=== PATIENT | female | born 1995 | race Caucasian/White ===

== ENCOUNTER 2017-11-15 20:11 | Inpatient (IN) | payer OTHER ==
[~2017-11-15] VITALS: Ht 167.6 cm; Wt 68.6 kg
[2017-11-15 20:33] VITALS: BP 136/74; PULSE 89; RESP 18; TEMP 100.1; O2SAT 97
[2017-11-15 21:14] LABS: AUTOMATED NEUTROPHIL # 5.7 TH/MM3 (1.8-7.7); BASOPHIL % 0.4 % (0.0-2.0); EOSINOPHIL % 0.1 % (0.0-4.0); HEMATOCRIT 37.8 % (35.0-46.0); HEMOGLOBIN 12.7 GM/DL (11.6-15.3); LYMPH % 15.4 % (9.0-44.0); LYMPHOCYTE # 1.1 TH/MM3 (1.0-4.8); MEAN CELL VOLUME 87.2 FL (80.0-100.0); MEAN CORPUSCULAR HEMOGLOBIN 29.3 PG (27.0-34.0); MEAN CORPUSCULAR HGB CONC 33.6 % (32.0-36.0); MEAN PLATELET VOLUME 9.8 FL (7.0-11.0); MONO % 7.4 % (0.0-8.0); MONOCYTE # 0.5 TH/MM3 (0-0.9); NEUT % 76.7 % (16.0-70.0); PLATELET COUNT 219 TH/MM3 (150-450); RED BLOOD COUNT 4.34 MIL/MM3 (4.00-5.30); WHITE BLOOD COUNT 7.4 TH/MM3 (4.0-11.0)
[2017-11-15 21:31] LABS: AST (GOT) 24 U/L (15-37); BICARBONATE 23.9 MEQ/L (21.0-32.0); BLOOD UREA NITROGEN 9 MG/DL (7-18); CHLORIDE 104 MEQ/L (98-107); GLOMERULAR FILTRATION RATE 91 ML/MIN (>89); GLUCOSE,RANDOM 104 MG/DL (74-106); SODIUM (NA) 138 MEQ/L (136-145)
[2017-11-15 21:42] LABS: ALKALINE PHOSPHATASE 56 U/L (45-117); ALT (GPT) 25 U/L (10-53); TOTAL BILIRUBIN ADULT 0.2 MG/DL (0.2-1.0); TOTAL PROTEIN 8.1 GM/DL (6.4-8.2)
--- NOTE | 2017-11-15 22:34 | PD ---
HPI Chief Complaint: Psychiatric Symptoms Time Seen by Provider: 21:51 Travel History International Travel<30 days: No Contact w/Intl Traveler<30days: No Traveled to known affect area: No History of Present Illness HPI 21-year-old female that presents to the ED for evaluation of Love act. Patient was Love acted by police after apparently she got in argument with her boyfriend and was in a closed garage with car turned on for about 10 minutes. Car was turned off and police where made involved. Per patient she has never been Lvoe acted before. She does suffer from anxiety and takes medications for it but she will not really tell me what it is. Per patient she feels very anxious because she is in the hospital. She denies any urinary or bowel movement issues. No chest pain or shortness of breath. No other medical issues. Denies suicidal or homicidal ideation. Denies any other medical issues at this time. No drugs or alcohol. Symptoms appear to have worsened today secondary to argument with significant other. [facility] Social History Alcohol Use: No Tobacco Use: No Substance Use: No Review of Systems Except as stated in HPI: all other systems reviewed are Neg Physical Exam Narrative GENERAL: SKIN: Warm and dry. HEAD: Atraumatic. Normocephalic. EYES: Pupils equal and round. No scleral icterus. No injection or drainage. ENT: No nasal bleeding or discharge. Mucous membranes pink and moist. Tongue is midline. No uvula deviation. NECK: Trachea midline. No JVD. CARDIOVASCULAR: Regular rate and rhythm. No murmurs, S3, S4. RESPIRATORY: No accessory muscle use. Clear to auscultation. Breath sounds equal bilaterally. GASTROINTESTINAL: Abdomen soft, non-tender, nondistended. Hepatic and splenic margins not palpable. MUSCULOSKELETAL: Extremities without clubbing, cyanosis, or edema. No obvious deformities. Full range of motion of the upper and lower extremities bilaterally. 2+ pulses bilaterally. NEUROLOGICAL: Awake and alert. No obvious cranial nerve deficits. Motor grossly within normal limits. Five out of 5 muscle strength in the arms and legs. Normal speech. PSYCHIATRIC: Anxious mood and affect; insight and judgment normal. Data Data Last Documented VS Vital Signs Date Time Temp Pulse Resp B/P (MAP) Pulse Ox O2 Delivery O2 Flow Rate FiO2 11/15/17 20:33 100.1 89 18 136/74 (94) 97 Room Air Orders Orders Complete Blood Count With Diff (11/15/17 20:13) Comprehensive Metabolic Panel (11/15/17 20:13) Thyroid Stimulating Hormone (11/15/17 20:13) Psych Screen (11/15/17 20:13) Drug Screen, Random Urine (11/15/17 20:13) Alcohol (Ethanol) (11/15/17 20:13) Labs Laboratory Tests Test 11/15/17 20:40 White Blood Count 7.4 TH/MM3 Red Blood Count 4.34 MIL/MM3 Hemoglobin 12.7 GM/DL Hematocrit 37.8 % Mean Corpuscular Volume 87.2 FL Mean Corpuscular Hemoglobin 29.3 PG Mean Corpuscular Hemoglobin Concent 33.6 % Red Cell Distribution Width 13.0 % Platelet Count 219 TH/MM3 Mean Platelet Volume 9.8 FL Neutrophils (%) (Auto) 76.7 % Lymphocytes (%) (Auto) 15.4 % Monocytes (%) (Auto) 7.4 % Eosinophils (%) (Auto) 0.1 % Basophils (%) (Auto) 0.4 % Neutrophils # (Auto) 5.7 TH/MM3 Lymphocytes # (Auto) 1.1 TH/MM3 Monocytes # (Auto) 0.5 TH/MM3 Eosinophils # (Auto) 0.0 TH/MM3 Basophils # (Auto) 0.0 TH/MM3 CBC Comment DIFF FINAL Differential Comment Blood Urea Nitrogen 9 MG/DL Creatinine 0.80 MG/DL Random Glucose 104 MG/DL Total Protein 8.1 GM/DL Albumin 4.0 GM/DL Calcium Level 9.0 MG/DL Alkaline Phosphatase 56 U/L Aspartate Amino Transf (AST/SGOT) 24 U/L Alanine Aminotransferase (ALT/SGPT) 25 U/L Total Bilirubin 0.2 MG/DL Sodium Level 138 MEQ/L Potassium Level 3.6 MEQ/L Chloride Level 104 MEQ/L Carbon Dioxide Level 23.9 MEQ/L Anion Gap 10 MEQ/L Estimat Glomerular Filtration Rate 91 ML/MIN Thyroid Stimulating Hormone 3rd Gen 2.510 uIU/ML Urine Opiates Screen NEG Urine Barbiturates Screen NEG Urine Amphetamines Screen NEG Urine Benzodiazepines Screen NEG Urine Cocaine Screen NEG Urine Cannabinoids Screen NEG Ethyl Alcohol Level LESS THAN 3 MG/DL MDM Medical Decision Making Medical Screen Exam Complete: Yes Emergency Medical Condition: Yes Medical Record Reviewed: Yes Interpretation(s) CBC & BMP Diagram 11/15/17 20:40 Total Protein 8.1, Albumin 4.0, Calcium Level 9.0, Alkaline Phosphatase 56, Aspartate Amino Transf (AST/SGOT) 24, Alanine Aminotransferase (ALT/SGPT) 25, Total Bilirubin 0.2 Differential Diagnosis Depression versus suicidal ideation versus anxiety versus adjustment disorder versus mood disorder versus bipolar disorder versus schizophrenia versus paranoid disorder versus psychosis versus substance abuse versus alcohol abuse versus alcohol induced psychosis versus homicidality addition versus cutting versus personality disorder Narrative Course 21-year-old female that presents to the ED for evaluation of psych. Patient was properly examined and was found to have signs and symptoms consistent with psychiatric illness been a significant medical distress. Labs were drawn. Patient was medically clear. Okay to be seen by psych. Mental health screening was discussed with the patient. Diagnosis Primary Impression: Adjustment disorder Qualified Codes: F43.20 - Adjustment disorder, unspecified Arun Fang Nov 15, 2017 22:33
[2017-11-16 02:16] VITALS: BP 107/57; PULSE 73; RESP 18; TEMP 98.2; O2SAT 99
[2017-11-16 05:44] VITALS: BP 101/57; PULSE 82; RESP 18; TEMP 97.6; O2SAT 100
[2017-11-16] MEDS ORDERED: LORazepam 2 MG/ML VIAL IM PRN ×2 (10:45)
[2017-11-16] MEDS ORDERED: LORazepam 1 MG TAB PO PRN (10:45)
[2017-11-16] MEDS ORDERED: ACETAMINOPHEN 325 MG TAB PO PRN (10:45)
[2017-11-16] MEDS ORDERED: MAGNESIUM HYDROXIDE SUSP 30 ML CUP PO PRN (10:45)
[2017-11-16] MEDS ORDERED: ALUMINUM/MAGNESIUM/SIMETH 30 ML CUP PO PRN (10:45)
[2017-11-16] MEDS ORDERED: LORazepam 0.5 MG TAB PO PRN (10:45)
[2017-11-16] MEDS: NICOTINE 21 MG/24 HR PATCH T-DERMAL SCH (10:45)
[2017-11-16 12:25] VITALS: BP 145/84; PULSE 89; RESP 20; TEMP 98.7; O2SAT 98
--- NOTE | 2017-11-16 13:52 | HHI.HP ---
Provisional Diagnosis Admission Date Nov 16, 2017 at 10:45 [place] I. Adjustment disorder with depressed mood vs major depressive disorder, recurrent , severe, without psychosis, history of anxiety [place] II. Deferred [place] III. No significant medical history Certification of Person's Competence To Provide Express and Informed Consent I have personally examined Meredith Monique , a person being served at [facility] on, Nov 16, 2017 13:37. Express and informed consent means consent voluntarily given in writing, by a competent person, after sufficient explanation and disclosure of the subject matter involved to enable the person to make a knowing and willful decision without any element of force, fraud, deceit, duress, or other form of constraint or coercion. This person is 18 years of age or older, is not now known to be incompetent to consent to treatment with a guardian advocate, and does not have a health care surrogate or proxy currently making medical treatment decisions. I have found this person to be one of the following: [] Competent to provide express and informed consent, as defined above, for voluntary admission to this facility and is competent to provide express and informed consent for treatment. He/she has the consistent capacity to make well reasoned, willful, and knowing decisions concerning his or her medical or mental health treatment. The person fully and consistently understands the purpose of the admission for examination/placement and is fully capable of personally exercising all rights assured [place] Incompetent to provide express and informed consent to voluntary admission, and this is incompetent to provide express and informed consent to treatment. The person must be transferred to involuntary status and a petition for a guardian advocate filed with the Circuit Court. [x] Refusing to provide express and informed consent to voluntary admission but is competent to provide express and informed consent for treatment. The person must be discharged or transferred to involuntary status. Form shall be completed within 24 hours of a person's arrival at the receiving facility and filed in the clinical record of each person: 1. Admitted on a voluntary basis 2. Permitted to provide express and informed consent to his/her own treatment 3. Allowed to transfer from involuntary to voluntary status 4. Prior to permitting a person to consent to his or her own treatment after having been previously found incompetent to consent to treatment. 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 Cornejo, no previous psychiatric hospitalizations, no previous suicide attempts, she does have a grandmother with schizophrenia and a brother who committed suicide at the age of 1515 years old, no significant medical history , that presents to the ED for evaluation of Love act. Patient was Love acted by police after apparently she got in argument with her boyfriend and was in a closed garage with car turned on for about 10 minutes. Car was turned off and police where made involved. Per patient she has never been Love acted before. On psychiatric evaluation today the patient is calm, but very distressed and labile. Patient reports that she got very far in trying to commit suicide, she got inside her car and her plan was to run the car with the windows open inside the garage "note with intentions to kill myself, but to demonstrate drastically to my boyfriend how much I love him". During the evaluation the patient is tearful, she looks objectively depressed, reports that she has been depressed lately and she was recently started in Prozac by a psychiatrist. The patient refuses to talk about the reason of her depression, states "if I tell you that you are going to leave me here". Patient also refuses to give me the telephone number her family for collateral information at this moment she denies suicidal enemas ideation, she denies visual and auditory hallucinations. The patient reports that she has a brother who committed suicide at the age of 15 year-old and she would not do the same. Patient is fully oriented 3. No attention deficit, no fluctuation of consciousness present. She is logical, coherent and relevant, no paranoia, disorganized behavior or speech or delusions present. The patient denies the use of alcohol and illegal drugs. Review of Systems Constitutional: DENIES: Diaphoretic episodes, Fatigue, Fever, Weight gain, Weight loss, Chills, Dizziness, Change in appetite, Night Sweats Endocrine: DENIES: Abnorml menstrual pattern, Heat/cold intolerance, Polydipsia , Polyuria, Polyphagia Eyes: DENIES: Blurred vision, Diplopia, Eye inflammation, Eye pain, Vision loss , Photosensitivity, Double Vision Ears, nose, mouth, throat: DENIES: Tinnitus, Hearing loss, Vertigo, Nasal discharge, Oral lesions, Throat pain, Hoarseness, Ear Pain, Running Nose, Epistaxis, Sinus Pain, Toothache, Odynophagia Respiratory: DENIES: Apneas, Cough, Snoring, Wheezing, Hemoptysis, Sputum production, Shortness of breath Cardiovascular: DENIES: Chest pain, Palpitations, Syncope, Dyspnea on Exertion , PND, Lower Extremity Edema, Orthopnea, Claudication Gastrointestinal: DENIES: Abdominal pain, Black stools, Bloody stools, Constipation, Diarrhea, Nausea, Vomiting, Difficulty Swallowing, Anorexia Genitourinary: DENIES: Abnormal vaginal bleeding, Dysmenorrhea, Dyspareunia, Sexual dysfunction, Urinary frequency, Urinary incontinence, Urgency, Hematuria , Dysuria, Nocturia, Vaginal discharge Musculoskeletal: DENIES: Joint pain, Muscle aches, Stiffness, Joint Swelling, Back pain, Neck pain Integumentary: DENIES: Abnormal pigmentation, Pruritus, Rash, Nail changes, Breast masses, Breast skin changes, Nipple discharge Hematologic/lymphatic: DENIES: Bruising, Lymphadenopathy Immunologic/allergic: DENIES: Eczema, Urticaria Neurologic: DENIES: Abnormal gait, Headache, Localized weakness, Paresthesias, Seizures, Speech Problems, Tremor, Poor Balance Psychiatric: DENIES: Anxiety, Confusion, Mood changes, Depression, Hallucinations, Agitation, Suicidal Ideation, Homicidal Ideation, Delusions Past Psych History Violence risk - self (6 mos) Increased Substance Abuse History Drugs/Alcohol past 12 months Patient denies the use of alcohol and illegal drug Past Family Social History Coded Allergies: No Known Allergies (Unverified , 11/15/17) Current Medications Medications (Trade) Dose Ordered Sig/[place] Route Start Time Stop Time Status Last Admin (Ativan) 1 mg Q6H PRN PO 11/16/17 10:45 (Ativan Inj) 1 mg Q6H PRN IM 11/16/17 10:45 (Ativan) 0.5 mg Q12H PRN PO 11/16/17 10:45 (Ativan Inj) 0.5 mg Q12H PRN IM 11/16/17 10:45 (Tylenol) 650 mg Q4H PRN PO 11/16/17 10:45 (Milk Of Magnesia Liq) 30 ml DAILY PRN PO 11/16/17 10:45 (Mag-Al Plus Susp Liq) 30 ml Q6H PRN PO 11/16/17 10:45 (Habitrol 21 Mg Patch.24 Hr) 1 patch DAILY T-DERMAL 11/16/17 10:45 Family Psych History Patient has a grandmother with schizophrenia, a brother who committed suicide at the age of 15 Social History Patient was born and raised in [place], she lives in [facility] with her boyfriend , she works for the [email or web address], 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 2) Good level of education, family support Physical Exam No tremors, no EPS, no psychomotor retardation or agitation, no gait disturbance Vital Signs Vital Signs Date Time Temp Pulse Resp B/P (MAP) Pulse Ox O2 Delivery O2 Flow Rate FiO2 11/16/17 12:25 98.7 89 20 145/84 (104) 98 11/16/17 05:44 Room Air Lab Results Test 11/15/17 20:40 White Blood Count 7.4 TH/MM3 Red Blood Count 4.34 MIL/MM3 Hemoglobin 12.7 GM/DL Hematocrit 37.8 % Mean Corpuscular Volume 87.2 FL Mean Corpuscular Hemoglobin 29.3 PG Mean Corpuscular Hemoglobin Concent 33.6 % Red Cell Distribution Width 13.0 % Platelet Count 219 TH/MM3 Mean Platelet Volume 9.8 FL Neutrophils (%) (Auto) 76.7 % Lymphocytes (%) (Auto) 15.4 % Monocytes (%) (Auto) 7.4 % Eosinophils (%) (Auto) 0.1 % Basophils (%) (Auto) 0.4 % Neutrophils # (Auto) 5.7 TH/MM3 Lymphocytes # (Auto) 1.1 TH/MM3 Monocytes # (Auto) 0.5 TH/MM3 Eosinophils # (Auto) 0.0 TH/MM3 Basophils # (Auto) 0.0 TH/MM3 CBC Comment DIFF FINAL Differential Comment Blood Urea Nitrogen 9 MG/DL Creatinine 0.80 MG/DL Random Glucose 104 MG/DL Total Protein 8.1 GM/DL Albumin 4.0 GM/DL Calcium Level 9.0 MG/DL Alkaline Phosphatase 56 U/L Aspartate Amino Transf (AST/SGOT) 24 U/L Alanine Aminotransferase (ALT/SGPT) 25 U/L Total Bilirubin 0.2 MG/DL Sodium Level 138 MEQ/L Potassium Level 3.6 MEQ/L Chloride Level 104 MEQ/L Carbon Dioxide Level 23.9 MEQ/L Anion Gap 10 MEQ/L Estimat Glomerular Filtration Rate 91 ML/MIN Thyroid Stimulating Hormone 3rd Gen 2.510 uIU/ML Urine Opiates Screen NEG Urine Barbiturates Screen NEG Urine Amphetamines Screen NEG Urine Benzodiazepines Screen NEG Urine Cocaine Screen NEG Urine Cannabinoids Screen NEG Ethyl Alcohol Level LESS THAN 3 MG/DL Mental Status Examination Appearance: Appropriate Consciousness: Alert Orientation: x4 Motor Activity: Normal gait Speech: Unremarkable Language: Adequate Fund of Knowledge: Adequate Attention and Concentration: Adequate Memory: Unremarkable Mood: Sad Affect: Irritable Thought Process & Associations: Intact Thought Content: Appropriate Hallucination Type: None Delusion Type: None Suicidal Ideation: Yes Suicidal Plan: No Suicidal Intention: No Homicidal Ideation: No Homicidal Plan: No Homicidal Intention: No Insight: Poor Judgment: Poor Assessment & Plan Problem List: (1) Adjustment disorder ICD Codes: F43.20 - Adjustment disorder, unspecified Status: Acute Assessment & Plan: At the moment of my psychiatric evaluation the patient presents very labile, emotionally incontinent, seems to be in acute distress, at the same time trying to minimize her recent reported suicidal intent. The patient reports that her suicidal attempt by getting inside a car with the windows opening inside the garage was just a way to manipulate her boyfriend. However, at the same time the patient has been recently started in treatment for depression and she refuses to elaborate about the stressors and circumstances of this depression. She was a started in Prozac 40 mg daily. The patient also has a significant family psychiatric history, her grandmother has schizophrenia and she has a brother who committed suicide at the age of 1515 years old. She would not provide the telephone number of her family member for collateral information in the ER. Given her psychiatric history, her family history and her elevated risk of danger to herself the patient is going to be admitted in psychiatry for stabilization and safety. I am thinking that the patient could be decompensated of her depression, but obviously personality structure and adjustment disorder with depression are quite high in the differential. Collateral information from her family is crucial in order to complete the psychiatric assessment. I will restart her Prozac 40 mg. Will consult psychiatry for second opinion. clerical warehouse worker intervention to help with collateral information, individual and group therapies, to coordinate safe discharge Assessment & Plan Estimated LOS: days Problem Qualifiers (1) Adjustment disorder: Qualified Codes: F43.21 - Adjustment disorder with depressed mood Quinn Rush MD Nov 16, 2017 13:52
[2017-11-16] MEDS: FLUoxetine HCL 20 MG CAP PO SCH (16:42)
[2017-11-16 18:15] VITALS: BP 141/83; PULSE 65; RESP 17; TEMP 98.3; O2SAT 97
[2017-11-17 05:23] VITALS: BP 113/65; PULSE 60; RESP 16; TEMP 98; O2SAT 100
[2017-11-17 08:15] LABS: BICARBONATE 28.4 MEQ/L (21.0-32.0); BLOOD UREA NITROGEN 10 MG/DL (7-18); CALCIUM 9.1 MG/DL (8.5-10.1); CHLORIDE 106 MEQ/L (98-107); CREATININE 0.74 MG/DL (0.50-1.00); GLOMERULAR FILTRATION RATE 99 ML/MIN (>89); GLUCOSE,RANDOM 88 MG/DL (74-106); SODIUM (NA) 140 MEQ/L (136-145)
[2017-11-17 08:16] LABS: CHOLESTEROL 209 MG/DL (120-200)
[2017-11-17 08:20] LABS: CHOLESTEROL/ HDL RATIO 3.32 RATIO; HDL CHOLESTEROL 62.8 MG/DL (40.0-60.0); LDL CHOLESTEROL 129 MG/DL (0-99); TRIGLYCERIDES 87 MG/DL (42-150)
[2017-11-17] MEDS: NICOTINE 21 MG/24 HR PATCH T-DERMAL SCH (09:00)
[2017-11-17] MEDS ORDERED: PRAZ1CAP PO (10:48)
[2017-11-17] MEDS ORDERED: FLUO40CA PO (10:48)
[2017-11-17] MEDS ORDERED: NORGTAB2 PO (11:01)
[2017-11-17] MEDS: FLUoxetine HCL 20 MG CAP PO SCH (12:57)
--- NOTE | 2017-11-17 13:51 | HHI.PYPN ---
Subjective Remarks This note serves also as my second opinion for involuntary psychiatric hospitalization. Patient seen and examined with nurse. Chart reviewed. Case discussed with nursing staff. On my examination today, the patient reports that she made her presenting gesture in response to "lots of anxiety" that had built up over some time. She reports that the approximate stressor was "bad fight with my boyfriend." Of her presenting gesture she says "I know it looks like I was suicidal from an outside perspective, but I was just acting out because he had left" referring to her boyfriend. She denies any suicidal ideation at this time. She notes that she follows on an outpatient basis with Dr. Johnson who prescribes her Prozac, increased a few days ago from 20 mg to 40 mg daily. She denies a history of previous suicide attempts but does admit to a history of nonsuicidal self-injurious behavior, namely cutting. She reports that she was adopted but knows that her biological brother completed suicide. She denies any substance use. 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 She also is starting a new job. She denies any access to guns or firearms. She notes that she will be staying with her parents after discharge. She is agreeable to remaining on the unit for observation through the weekend. Review of Systems Except as stated in HPI: all other systems reviewed are Neg Mental Status Examination Appearance: Appropriate Consciousness: Alert Orientation: x4 Motor Activity: Normal gait, Other (No motor abnormalities noted) Speech: Unremarkable Language: Adequate Fund of Knowledge: Adequate Attention and Concentration: Adequate Memory: Unremarkable Mood: Appropriate Affect: Appropriate Thought Process & Associations: Intact, Logical, Linear Thought Content: Appropriate Hallucination Type: None Delusion Type: None Suicidal Ideation: No Suicidal Plan: No Suicidal Intention: No Homicidal Ideation: No Homicidal Plan: No Homicidal Intention: No Insight: Fair Judgment: Impulsive Results Labs Laboratory Tests Test 11/15/17 20:40 11/17/17 07:08 White Blood Count 7.4 TH/MM3 Red Blood Count 4.34 MIL/MM3 Hemoglobin 12.7 GM/DL Hematocrit 37.8 % Mean Corpuscular Volume 87.2 FL Mean Corpuscular Hemoglobin 29.3 PG Mean Corpuscular Hemoglobin Concent 33.6 % Red Cell Distribution Width 13.0 % Platelet Count 219 TH/MM3 Mean Platelet Volume 9.8 FL Neutrophils (%) (Auto) 76.7 % Lymphocytes (%) (Auto) 15.4 % Monocytes (%) (Auto) 7.4 % Eosinophils (%) (Auto) 0.1 % Basophils (%) (Auto) 0.4 % Neutrophils # (Auto) 5.7 TH/MM3 Lymphocytes # (Auto) 1.1 TH/MM3 Monocytes # (Auto) 0.5 TH/MM3 Eosinophils # (Auto) 0.0 TH/MM3 Basophils # (Auto) 0.0 TH/MM3 CBC Comment DIFF FINAL Differential Comment Blood Urea Nitrogen 9 MG/DL 10 MG/DL Creatinine 0.80 MG/DL 0.74 MG/DL Random Glucose 104 MG/DL 88 MG/DL Total Protein 8.1 GM/DL Albumin 4.0 GM/DL Calcium Level 9.0 MG/DL 9.1 MG/DL Alkaline Phosphatase 56 U/L Aspartate Amino Transf (AST/SGOT) 24 U/L Alanine Aminotransferase (ALT/SGPT) 25 U/L Total Bilirubin 0.2 MG/DL Sodium Level 138 MEQ/L 140 MEQ/L Potassium Level 3.6 MEQ/L 4.2 MEQ/L Chloride Level 104 MEQ/L 106 MEQ/L Carbon Dioxide Level 23.9 MEQ/L 28.4 MEQ/L Thyroid Stimulating Hormone 3rd Gen 2.510 uIU/ML Urine Opiates Screen NEG Urine Barbiturates Screen NEG Urine Amphetamines Screen NEG Urine Benzodiazepines Screen NEG Urine Cocaine Screen NEG Urine Cannabinoids Screen NEG Ethyl Alcohol Level LESS THAN 3 MG/DL Anion Gap 6 MEQ/L Estimat Glomerular Filtration Rate 99 ML/MIN Triglycerides Level 87 MG/DL Cholesterol Level 209 MG/DL LDL Cholesterol 129 MG/DL HDL Cholesterol 62.8 MG/DL Cholesterol/HDL Ratio 3.32 RATIO ED point of care test negative. Vitals/IOs Vital Signs Date Time Temp Pulse Resp B/P (MAP) Pulse Ox O2 Delivery O2 Flow Rate FiO2 11/17/17 05:23 98.0 60 16 113/65 (81) 100 11/16/17 05:44 Room Air Assessment & Plan Problem List: (1) Adjustment disorder ICD Codes: F43.20 - Adjustment disorder, unspecified Status: Acute Assessment & Plan Patient would benefit from observation on the unit and has agreed to remain voluntarily. I sandwich artist that she is capacitated to consent for voluntary admission. She does not meet criteria for involuntary psychiatric hospitalization therefore. I will resume her home dose of Prozac 40 mg daily and also provide Atarax as needed for anxiety and Benadryl as needed for sleep. I will resume her home oral contraceptive. Counselor to see and obtain collateral information. Continue to monitor on the inpatient unit. Continue other medications and care as ordered. Justification for Cont. Inpt. Monitoring for impairment in safety. Discharge Planning Possible discharge after the weekend. Request HC Surrog/Guard Advoc?: No Problem Qualifiers (1) Adjustment disorder: Qualified Codes: F43.25 - Adjustment disorder with mixed disturbance of emotions and conduct Primitivo Gomez MD Nov 17, 2017 13:51
[2017-11-17] MEDS ORDERED: diphenhydrAMINE HCL 50 MG CAP PO PRN (14:00)
[2017-11-17] MEDS ORDERED: FLUoxetine HCL 20 MG CAP PO ONE (14:00)
[2017-11-17] MEDS ORDERED: NORGESTIMATE ETHINYL ESTRADIOL PO SCH (14:00)
--- NOTE | 2017-11-17 15:47 | PD.TTN ---
Patient Problems 1. Discharge planning 2. Medication compliance 3. Knowledge deficit 4. Lack of coping skills Progress Toward Goals Provider Present: Dr. Sebas Gomez Provider Input: 11/17/17 - This is a new patient and Dr. Joyner will see him today for assessment. Psychiatric Counselors Present: DEE Madrigal Psych Therapist Input: 11/17/17 - New patient and counselor will conduct assessment today. Group Spec/RT/OT/GONSALEZ Present: SUNSHINE Colon, SUNSHINE Che Group Spec/RT/OT/GONSALEZ Input: 11/17/17 - New patient Discharge Plan SMA, Patient's choice of Provider 11/17/17 - Patient will receive follow-up psychiatric care from her private psychiatrist, Dr. Johnson, in [place], [place]. Documentation Scribe: DEE Madrigal Date Resolved: Nov 17, 2017 Delilah Rodriguez Nov 17, 2017 15:47
[2017-11-17 16:00] LABS: HEMOGLOBIN A1C 5.3 % (4.3-6.0)
[2017-11-17] MEDS: NORGESTIMATE PO SCH (17:50)
[2017-11-17] MEDS: ETHINYL ESTRADIOL PO SCH (17:50)
[2017-11-17] MEDS: hydrOXYzine HCL 50 MG TAB PO PRN (17:56)
[2017-11-17 18:29] VITALS: BP 139/85; PULSE 87; RESP 18; TEMP 98.2; O2SAT 100
[2017-11-18 06:16] VITALS: BP 107/58; PULSE 66; RESP 16; TEMP 98; O2SAT 99
[2017-11-18] MEDS: NORGESTIMATE PO SCH (08:58)
[2017-11-18] MEDS: NICOTINE 21 MG/24 HR PATCH T-DERMAL SCH (08:58)
[2017-11-18] MEDS: ETHINYL ESTRADIOL PO SCH (08:58)
[2017-11-18] MEDS: FLUoxetine HCL 20 MG CAP PO SCH (08:58)
--- NOTE | 2017-11-18 12:06 | HHI.PYPN ---
Subjective Remarks Reviewed electronic medical record and discussed case with staff. Patient requesting ibuprofen for menstrual cramps, an as needed order has been placed. Follow-up was conducted in patient's room with nurse present. Patient was alert and oriented 4. She reports that she slept better than the previous 2 nights. She her mood is good her affect is euthymic. She reports that her parents have been to visit her the last 2 nights they feel that she is doing well. She reports having a good appetite. Denies any thoughts of suicidal ideation. Mental Status Examination Appearance: Appropriate Consciousness: Alert Orientation: x4 Motor Activity: Normal gait, Other (No motor abnormalities noted) Speech: Unremarkable Language: Adequate Fund of Knowledge: Adequate Attention and Concentration: Adequate Memory: Unremarkable Mood: Appropriate Affect: Appropriate Thought Process & Associations: Intact, Logical, Linear Thought Content: Appropriate Hallucination Type: None Delusion Type: None Suicidal Ideation: No Suicidal Plan: No Suicidal Intention: No Homicidal Ideation: No Homicidal Plan: No Homicidal Intention: No Insight: Fair Judgment: Impulsive Results Vitals/IOs Vital Signs Date Time Temp Pulse Resp B/P (MAP) Pulse Ox O2 Delivery O2 Flow Rate FiO2 11/18/17 06:16 98.0 66 16 107/58 (74) 99 11/16/17 05:44 Room Air Intake and Output 11/18/17 11/18/17 11/19/17 08:00 16:00 00:00 Intake Total 360 ml Balance 360 ml Assessment & Plan Problem List: (1) Adjustment disorder ICD Codes: F43.20 - Adjustment disorder, unspecified Status: Acute Assessment & Plan Estimated LOS: Continue with treatment as ordered. Possible discharge within the next few days. Patient will be reassessed by her psychiatrist on Monday. Days Justification for Cont. Inpt. Moving this patient to a lower level of care may result in a decompensation. Request HC Surrog/Guard Advoc?: No Problem Qualifiers (1) Adjustment disorder: Qualified Codes: F43.25 - Adjustment disorder with mixed disturbance of emotions and conduct Josette Valdes Nov 18, 2017 12:06
[2017-11-18] MEDS ORDERED: IBUPROFEN 600 MG TAB PO SCH (14:00)
[2017-11-18] MEDS ORDERED: IBUPROFEN 600 MG TAB PO PRN (14:00)
[2017-11-18 18:07] VITALS: BP 136/69; PULSE 60; RESP 17; TEMP 98.3; O2SAT 100
[2017-11-19 05:37] VITALS: BP 112/64; PULSE 62; RESP 16; TEMP 97.6; O2SAT 100
[2017-11-19] MEDS: FLUoxetine HCL 20 MG CAP PO SCH (08:34)
[2017-11-19] MEDS: ETHINYL ESTRADIOL PO SCH (08:34)
[2017-11-19] MEDS: NORGESTIMATE PO SCH (08:34)
--- NOTE | 2017-11-19 13:05 | HHI.PYPN ---
Subjective Remarks Reviewed electronic medical record discussed case with staff. Follow-up was conducted in patient's room with nurse present. Patient reports that she has been sleeping well has had a good appetite. She looks forward to being discharged. She reports that her family visited over the weekend and during the discussion she mentioned that her boyfriend's visits or stressful to her. Patient's mood is good and her affect is euthymic. Some anxiety is noted when the topic of her boyfriend comes up. She denies being suicidal homicidal or having any auditory or visual hallucinations. Mental Status Examination Appearance: Appropriate Consciousness: Alert Orientation: x4 Motor Activity: Normal gait, Other (No motor abnormalities noted) Speech: Unremarkable Language: Adequate Fund of Knowledge: Adequate Attention and Concentration: Adequate Memory: Unremarkable Mood: Appropriate Affect: Appropriate Thought Process & Associations: Intact, Logical, Linear Thought Content: Appropriate Hallucination Type: None Delusion Type: None Suicidal Ideation: No Suicidal Plan: No Suicidal Intention: No Homicidal Ideation: No Homicidal Plan: No Homicidal Intention: No Insight: Fair Judgment: Impulsive Results Vitals/IOs Vital Signs Date Time Temp Pulse Resp B/P (MAP) Pulse Ox O2 Delivery O2 Flow Rate FiO2 11/19/17 05:37 97.6 62 16 112/64 (80) 100 11/16/17 05:44 Room Air Intake and Output 11/19/17 11/19/17 11/20/17 08:00 16:00 00:00 Intake Total 360 ml Balance 360 ml Assessment & Plan Problem List: (1) Adjustment disorder ICD Codes: F43.20 - Adjustment disorder, unspecified Status: Acute Assessment & Plan Estimated LOS: Continue with treatment plan as ordered. Attending psychiatrist will be and to reevaluate patient tomorrow. Days Justification for Cont. Inpt. Moving this patient to a lower level of care would likely result in decompensation. Request HC Surrog/Guard Advoc?: No Problem Qualifiers (1) Adjustment disorder: Qualified Codes: F43.25 - Adjustment disorder with mixed disturbance of emotions and conduct Josette Valdes Nov 19, 2017 13:05
[2017-11-19] MEDS: hydrOXYzine HCL 50 MG TAB PO PRN (17:22)
[2017-11-19 18:03] VITALS: BP 147/85; PULSE 82; RESP 16; TEMP 97.6; O2SAT 100
[2017-11-20 05:35] VITALS: BP 116/61; PULSE 54; RESP 16; TEMP 98.2; O2SAT 98
[2017-11-20] MEDS: FLUoxetine HCL 20 MG CAP PO SCH (08:57)
[2017-11-20] MEDS: ETHINYL ESTRADIOL PO SCH (09:00)
[2017-11-20] MEDS: NORGESTIMATE PO SCH (09:00)
[2017-11-20] MEDS ORDERED: HYDR50TA94 PO (10:54)
--- NOTE | 2017-11-20 10:54 | HHI.DS ---
Psychiatry Discharge Summary Inpatient Psychiatric care?: Yes Advance Directive: No Reason Not Provided: Education Provided Mental Health AdvanceDirective: No Health Care Proxy: No Admission Admission Date Nov 16, 2017 at 10:45 Admission Diagnosis: (1) Adjustment disorder ICD Code: F43.20 - Adjustment disorder, unspecified Brief History The patient is a 21-year-old woman, domiciled with her boyfriend in [facility], employed for the department of [employer], she is a college student, with psychiatric history of anxiety and depression, she is in Prozac [address] Cornejo, no previous psychiatric hospitalizations, no previous suicide attempts, she does have a grandmother with schizophrenia and a brother who committed suicide at the age of 1515 years old, no significant medical history , that presents to the ED for evaluation of Love act. Patient was Love acted by police after apparently she got in argument with her boyfriend and was in a closed garage with car turned on for about 10 minutes. Car was turned off and police where made involved. Per patient she has never been Love acted before. On psychiatric evaluation today the patient is calm, but very distressed and labile. Patient reports that she got very far in trying to commit suicide, she got inside her car and her plan was to run the car with the windows open inside the garage "note with intentions to kill myself, but to demonstrate drastically to my boyfriend how much I love him". During the evaluation the patient is tearful, she looks objectively depressed, reports that she has been depressed lately and she was recently started in Prozac by a psychiatrist. The patient refuses to talk about the reason of her depression, states "if I tell you that you are going to leave me here". Patient also refuses to give me the telephone number her family for collateral information at this moment she denies suicidal enemas ideation, she denies visual and auditory hallucinations. The patient reports that she has a brother who committed suicide at the age of 15 year-old and she would not do the same. Patient is fully oriented 3. No attention deficit, no fluctuation of consciousness present. She is logical, coherent and relevant, no paranoia, disorganized behavior or speech or delusions present. The patient denies the use of alcohol and illegal drugs. Tobacco Use In Past 30 Days: No Tobacco Past 30 Days Alcohol Use: 2-4 Times Per Month Hospital Course Patient was admitted to a locked, inpatient psychiatric unit. Appropriate precautions were in place throughout patient's hospital stay. Patient was seen and examined on the unit by psychiatry and also visited by counselor. Patient' s home dose of Prozac was continued. There was no evidence of any suicidality or homicidality on the inpatient unit. There was no evidence of self-care deficit. Patient remained in good behavioral control and was medication compliant. Counselor obtained collateral information from patient's family. On the day of discharge: Patient seen and examined with nurse and counselor. Chart reviewed. Case discussed with nursing staff. No behavioral issues noted overnight. Case discussed with counselor. Counselor has reached out to patient 's mother who reportedly has no concerns about the patient being discharged home today. On my examination today, the patient appears quite euthymic. She denies any suicidal or homicidal ideation, intent or plan on direct questioning and contracts for safety. I can elicit no depressive or hypomanic/manic symptoms. She is future oriented. Anxiety level decreased versus admission. Atarax helps with this anxiety. Denies audiovisual hallucinations. No delusional material. There is no evidence of any impairment in reality construction. Denies side effects from medications. No physical complaints. Suicide and violence risk assessment on day of discharge both suggest lower imminent risk from mental illness has defined under Love act, and patient's level of function is adequate for outpatient care. Patient does not meet criteria for involuntary psychiatric hospitalization. She is requesting discharge from the inpatient unit today, and I have no basis to retain her over her objection. Patient will be discharged home today with psychiatric follow- up as arranged by counselor. Patient is also to follow up with primary care. I have counseled the patient regarding warning signs for need to return to the psychiatric emergency room as part of a general safety plan. Results Blood Pressure 116 / 61 Vital Signs Date Time Temp Pulse Resp B/P (MAP) Pulse Ox O2 Delivery O2 Flow Rate FiO2 11/20/17 05:35 98.2 54 16 116/61 (79) 98 Laboratory Results Test 11/17/17 07:08 Cholesterol Level 209 MG/DL (120-200) HDL Cholesterol 62.8 MG/DL (40.0-60.0) Hemoglobin A1c 5.3 % (4.3-6.0) LDL Cholesterol 129 MG/DL (0-99) Triglycerides Level 87 MG/DL (42-150) Summary of Procedures None done Imaging None done Pending results at discharge: No Medications # of Antipsychotic meds at D/C: 0 Approp Antipsych med options 1 - Minimum of three failed multiple trials of monotherapy. 2 - Documented plan to taper to monotherapy due to previous use of multiple meds OR cross-taper in progress at D/C. 3 - Documentation of augmentation of Clozapine. 4 - Justification other than those listed in allowable values 1-3, document here : Discharge Discharge Date: Nov 20, 2017 Discharge Diagnosis: (1) Adjustment disorder with mixed disturbance of emotions and conduct Diagnosis: Principal (resolved) ICD Code: F43.25 - Adjustment disorder with mixed disturbance of emotions and conduct Pt Condition on Discharge: Stable Discharge Disposition: Discharge Home Discharge Instructions Diet Instructions: As Tolerated, No Restrictions Activities you can perform: Weight Bearing as Shannan Scheduled Appointment: As per counselors notes New Medications: Hydroxyzine HCl (Hydroxyzine HCl) 50 Mg Tab 50 MG PO Q6H PRN for Anxiety, #15 TAB 1 Refill Continued Medications: Fluoxetine (Fluoxetine) 40 Mg Cap 40 CAP PO DAILY for mental health, #30 CAP 0 Refills Norgestimate-Ethinyl Estradiol (Norgestimate-Ethinyl Estradiol) 0.18/0.215/0.25 Mg-35 Mcg Tab 1 TAB PO DAILY for Control, #1 PACK 0 Refills Discontinued Medications: Prazosin (Prazosin) 1 Mg Cap 1 MG PO HS for Blood Pressure Management, #60 CAP 0 Refills Discharge Time <= 30 minutes Mental Status Examination Appearance: Appropriate Consciousness: Alert Orientation: x4 Motor Activity: Normal gait, Other (No abnormal motor movements noted) Speech: Unremarkable Language: Adequate Fund of Knowledge: Adequate Attention and Concentration: Adequate Memory: Unremarkable Mood: Appropriate Affect: Appropriate, Euthymic Thought Process & Associations: Intact, Logical, Goal directed, Linear Thought Content: Appropriate Hallucination Type: None Delusion Type: None Suicidal Ideation: No Suicidal Plan: No Suicidal Intention: No Homicidal Ideation: No Homicidal Plan: No Homicidal Intention: No Mental Status Exam Remarks Insight and judgment are fair Discharge/Advance Care Plan Health Problems: (1) Adjustment disorder Goals to promote your health * To prevent worsening of your condition and complications * To maintain your health at the optimal level Directions to meet your goals Take your medications as prescribed Follow your dietary instruction Follow activity as directed Keep your appointments as scheduled Take your immunizations and boosters as scheduled If your symptoms worsen call your PCP, if no PCP go to Urgent Care Center or Emergency Room For 13/02 questions related to your inpatient stay or results of tests pending at discharge, please contact Dr. Primitivo Gomez at Smoking is Dangerous to Your Health. Avoid second hand smoking Problem Qualifiers (1) Adjustment disorder: Qualified Codes: F43.21 - Adjustment disorder with depressed mood Primitivo Gomez MD Nov 20, 2017 10:54
== END 2017-11-20 14:25 | disposition home or self-care (01) | DRG 882 ==
LOC: NEPJ 20:11 → NEDA 11-16 10:45 → H260 11-16 12:15
PROVIDERS: ADMIT Psychiatry & Neurology Psychiatry; ATTEND Psychiatry & Neurology Psychiatry
DX: F43.25 Adjustment disorder with mixed disturbance of emotions and conduct (principal); N94.6 Dysmenorrhea, unspecified; T14.91XA Suicide attempt, initial encounter; X83.8XXA Intentional self-harm by other specified means, initial encounter; Z81.8 Family history of other mental and behavioral disorders; Z91.5 Personal history of self-harm
CPT/HCPCS: 80048; 80053; 80061; 80307; 83036; 84443; 84703; 85025; 99285